=== PATIENT | male | born 1960 | race Asian ===

== ENCOUNTER 2024-06-20 15:30 | Outpatient (CLI) | payer OTHER ==
--- NOTE | 2024-06-20 16:30 | XRAY Report ---
PROCEDURE: Knee 3V LT INDICATIONS: PAIN IN LEFT KNEE TECHNIQUE: 3 views of the knee(s) were acquired. COMPARISON: None. FINDINGS: Bones: No fractures or dislocations. No suspicious bony lesions. Tricompartmental joint space uriel rowing with associated osteophytosis. Soft tissues: Moderate knee joint effusion. No suspicious soft tissue calcifications or masses. IMPRESSION: No acute bony abnormality. Moderate knee joint effusion. Mild to moderate tricompartmental osteoarthritis. Kellgren-Lucio scale of osteoarthritis: 2. Reviewed by: Dajuan Haynes MD on 06/20/2024 4:29 PM PDT Approved by: Dajuan Haynes MD on 06/20/2024 4:29 PM PDT Station ID: [id number]
== END 2024-06-20 15:45 | disposition home or self-care (01) ==
LOC: DI.N 15:30
PROVIDERS: ATTEND Physician Assistant Medical
DX: M17.12 Unilateral primary osteoarthritis, left knee (principal); M25.462 Effusion, left knee

== ENCOUNTER 2024-07-15 10:13 | Outpatient (CLI) | payer OTHER ==
[2024-07-15 12:35] LABS: BASOPHILS % (AUTO) 0.7 %; EOSINOPHILS # (AUTO) 0.3 10^3/uL (0.0-0.7); EOSINOPHILS % (AUTO) 4.5 %; HCT - HEMATOCRIT 43.1 % (42.0-52.0); HGB - HEMOGLOBIN 13.8 g/dL (14.0-18.0); LYMPHOCYTES # (AUTO) 1.7 10^3/uL (1.5-3.5); MEAN CORPUSCULAR HEMOGLOBIN 27.1 pg (27.0-31.0); MEAN CORPUSCULAR VOLUME 84.7 fL (80.0-94.0); MEAN PLATELET VOLUME 9.1 fL (7.4-11.4); MONOCYTES # (AUTO) 0.4 10^3/uL (0.0-1.0); MONOCYTES % (AUTO) 6.2 %; NEUTROPHILS # (AUTO) 3.4 10^3/uL (1.5-6.6); NEUTROPHILS % (AUTO) 58.4 %; PLT - PLATELET COUNT 172 10^3/uL (130-450); RED BLOOD COUNT 5.09 10^6/uL (4.70-6.10); RED CELL DISTRIBUTION WIDTH 13.3 % (12.0-15.0); WHITE BLOOD COUNT 5.8 x10^3/uL (4.8-10.8)
[2024-07-15 12:52] LABS: ALBUMIN 4.4 g/dL (3.2-5.5); ALBUMIN/GLOBULIN RATIO 1.3 (1.0-2.2); ALKALINE PHOSPHATASE 74 IU/L (42-121); ALT ALANINE AMINOTRANSFERASE 26 IU/L (10-60); AST ASPARTATE AMINOTRANSFERASE 21 IU/L (10-42); BILIRUBIN,TOTAL 0.5 mg/dL (0.2-1.0); BUN - BLOOD UREA NITROGEN 15 mg/dL (6-20); CALCIUM 9.6 mg/dL (8.5-10.3); CARBON DIOXIDE - CO2 30 mmol/L (21-32); CHLORIDE 102 mmol/L (101-111); CHOL/HDL RATIO 2.5 (<5.0); CHOLESTEROL 205 mg/dL; CREATININE 0.7 mg/dL (0.6-1.3); GFR - MDRD 114 (>89); GLUCOSE 102 mg/dL (74-104); HDL CHOLESTEROL 83 mg/dL; LDL CHOLESTEROL,CALCULATED 110 mg/dL; LDL/HDL RATIO 1.3 (<3.6); POTASSIUM 3.9 mmol/L (3.5-4.5); SODIUM 137 mmol/L (135-145); TOTAL PROTEIN 7.8 g/dL (6.4-8.9); TRIGLYCERIDES 61 mg/dL; VLDL CHOLESTEROL 12 mg/dL
[2024-07-15 13:01] LABS: THYROID STIMULATING HORMONE 0.76 uIU/mL (0.34-5.60)
[2024-07-15 13:02] LABS: ESTIMATED AVERAGE GLUCOSE 134 mg/dL (70-100); HEMOGLOBIN A1c% 6.3 % (4.27-6.07)
== END 2024-07-15 10:14 | disposition home or self-care (01) ==
LOC: LAB.N 10:13
PROVIDERS: ATTEND Nurse Practitioner Family
DX: I10 Essential (primary) hypertension (principal); Z13.220 Encounter for screening for lipoid disorders; Z13.1 Encounter for screening for diabetes mellitus; Z12.5 Encounter for screening for malignant neoplasm of prostate
CPT/HCPCS: 36415; 80053; 80061; 83036; 83721; 84153; 84443; 85025